=== PATIENT | female | born 1955 | race Caucasian/White ===

== ENCOUNTER 2019-07-23 09:35 | Outpatient (CLI) | payer OTHER, SELFPAY ==
--- NOTE | 2019-07-23 06:00 | DI.RAD_ITS ---
EXAM: XR PAIN CLINIC FLUORO JOINT IN CLINICAL HISTORY: Dx: Knee Osteoarthritis TECHNIQUE: Realtime digital imaging was performed. COMPARISON: No exams were available for comparison FINDINGS: Fluoroscopy was utilized by Dr. Hutton during the performance of a left genicular nerve block. Please refer to the procedure report for complete details. Fluoro time is 69.5 seconds. DATA REPOSITORY: RADIATION DOSE DELIVERED:
[2019-07-23 09:41] VITALS: BP 132/60; PULSE 111; RESP 20; TEMP 37.2; O2SAT 95
[2019-07-23 11:15] VITALS: BP 124/55; PULSE 110; RESP 15; O2SAT 97
--- NOTE | 2019-07-23 11:16 | PDOC.PAIN_ITS ---
Pain Clinic Procedure Note Procedure Note Procedure Note: LEFT GENICULAR NERVE RADIOFREQUENCY ABLATION WITH THE COOLIEF MACHINE Date of Service: July 23, 2019 Patient: Patsy Melgar Provider: Davon Hutton DO, MPH Pre-operative diagnosis: Left knee osteoarthritis Post-operative diagnosis: Same COMMENTS: Previous Genicular nerve block to the LEFT knee at [facility]. Patsy Melgar has been referred [facility] the [facility] for LEFT genicular nerve radiofrequency ablation. Patsy was interviewed and the medical record reviewed. There were no medical, pharmacologic, radiographic or other structural contraindications to attempting fluoroscopically guided LEFT genicular nerve radiofrequency ablation. Risks and potential side effects as well as potential benefit of the procedure were reviewed with Patsy Melgar , and HER voiced concerns were addressed. After I believed that the patient was completely informed, the printed consent form was signed. Standard time-out procedure was performed. Patsy was placed in the supine position on the fluoroscopy table and automated blood pressure cuff and pulse oximeter applied. The skin entry points for approaching LEFT superolateral genicular nerve, the superomedial genicular nerve, the supra-patellar nerve, and the inferomedial genicular was identified under the most advantageous fluoroscopic view and marked. Following thorough Chlorhexadine preparation of the skin and draping, 1% lidocaine infiltration of the skin entry point and subcutaneous tissues was accomplished using a 1.5 25G needle. Next, the 10 cm 18G RF Cannula with a 10 mm active tip was advanced to os at the location of the specific nerve roots (3) using fluoroscopic guidance. Next, sensory and motor testing was performed and no abnormal findings were found. Next, 1 cc of 2% Lidocaine was injected at each site. The lesion was then created with 80 degrees C for 90 seconds. Each needle was advance 1 cm and the lesion was completed again. Each cannula was advanced until the tip reached the posterior aspect of the bone shaft. 1/4 cc of Depomedrol (40 mg/cc) was then injected at each site followed by 2 cc of 0.5% Bupivacaine as the needle was withdrawn. The needles were removed without difficulty. Porters vital signs were stable throughout the procedure and were as recorded in the docflowsheet by the nursing staff. If given, dosages of intravenous drugs for anxiolysis and analgesia were documented in MAR. Follow up plans and appointments were discussed with the Patsy Melgar . Post procedure instruction was given as documented in nursing documentation and having met discharge criteria, Patsy was [facility] from the [facility]. COMMENTS: No complications. Vasquez WJ1, Sam SJ, Primo JG, Grayson JG, Lino HERNANDEZ, Park PH, Zhao JW. Radiofrequency treatment relieves chronic knee osteoarthritis pain: a double-blind randomized controlled trial. Pain. 2010;152(3):481-7. doi: 10.1016/j.pain.2010.09.029. Satci S1, Nicholas ON2, Jackeline Y3, ?zl?lereben P2, Manjeet U1, Matt ?m?rl? I. Which one is more effective for the clinical treatment of chronic pain in knee osteoarthritis: radiofrequency neurotomy of the genicular nerves or intra- articular injection? Int J Rheum Dis. 2016 Dec 29. F/U with our office as needed. I personally performed this entire procedure. Davon Hutton DO, MPH ABPMR-Subspecialty Board Certification in Pain Medicine Attending Physician
[2019-07-23] MEDS: Bupivacaine 0.5% Pres-Free 10 ML VIAL IJ (11:24)
[2019-07-23] MEDS: Lidocaine 2% Pres-Free 5 ML VIAL IJ (11:25)
[2019-07-23] MEDS: methylPREDNISolone ACETATE 40 MG/ML VIAL IM (11:27)
== END 2019-07-23 09:55 ==
PROVIDERS: Visit Provider Preventive Medicine Occupational Medicine
DX: M17.12 Unilateral primary osteoarthritis, left knee (principal); M25.562 Pain in left knee
CPT/HCPCS: 64624; 64640; 77002; J1030